=== PATIENT | female | born 1940 | race Caucasian/White ===

== ENCOUNTER 2018-12-26 12:57 | Emergency (ER) | payer MEDICARE ==
[2018-12-26 13:04] VITALS: RESP 18; TEMP 99.1
--- NOTE | 2018-12-26 13:27 | ED ---
Lower Extremity Injury HPI - General Chief Complaint: Extremity Injury, Lower Stated Complaint: fall Time Seen by Provider: 12/26/18 13:06 Source: patient, RN notes reviewed Mode of arrival: ambulatory Limitations: no limitations - History of Present Illness Initial Comments: This an 78-year-old female presents emergency Department chief complaint of left leg injury. Patient states she fell on Sunday because she missed the last step falling onto her leg. Patient complains of worsening pain to her left leg with increased bruising and swelling. Patient states that most the pain is on the medial aspect of her knee region. Denies any paresthesias. Patient has concerns about possible blood clot denies any chest pain or shortness of breath. Denies any hip pain. - Related Data Home Medications Medication Instructions Recorded Confirmed Enalapril [Vasotec] 10 mg PO DAILY 12/26/18 12/26/18 Montelukast [Singulair] 10 mg PO HS 12/26/18 12/26/18 Nature-Thyroid Unknown Dose 0.5 tab PO MOTH 12/26/18 12/26/18 Thyroid,Pork [[place] Thyroid] 30 mg PO DAILY 12/26/18 12/26/18 Allergies Allergy/AdvReac Type Severity Reaction Status Date / Time Penicillins Allergy Dyspnea Verified 12/26/18 13:39 Review of Systems ROS Statement: Those systems with pertinent positive or pertinent negative responses have been documented in the HPI. ROS Other: All systems not noted in ROS Statement are negative. Past Medical History Past Medical History: Asthma, Hypertension, Thyroid Disorder History of Any Multi-Drug Resistant Organisms: None Reported Past Surgical History: No Surgical Hx Reported Past Psychological History: No Psychological Hx Reported Smoking Status: Current every day smoker Past Alcohol Use History: None Reported Past Drug Use History: None Reported General Exam Limitations: no limitations General appearance: alert, in no apparent distress Head exam: Present: atraumatic, normocephalic, normal inspection Respiratory exam: Present: normal lung sounds bilaterally. Absent: respiratory distress, wheezes, rales, rhonchi, stridor Cardiovascular Exam: Present: regular rate, normal rhythm, normal heart sounds. Absent: systolic murmur, diastolic murmur, rubs, gallop, clicks Extremities exam: Present: other (Left leg there is tenderness on the medial aspect of the knee,, neurovascular intact there is no laxity there is mild discomfort with range of motion there is diffuse ecchymosis from the knee to the left foot there is no tenderness of the distal tib-fib or left foot) Course Vital Signs 12/26/18 13:01 Temperature 99.1 F Pulse Rate 83 Respiratory 18 Rate Blood Pressure 149/73 O2 Sat by Pulse 97 Oximetry Medical Decision Making - Medical Decision Making 78-year-old female presented for fall, leg injury. X-ray also obtained negative for acute abnormality. Patient has a knee contusion. Patient will be discharged return parameters were discussed. Disposition Clinical Impression: Contusion of left knee Disposition: HOME SELF-CARE Condition: Stable Instructions (If sedation given, give patient instructions): Knee Pain (ED) Additional Instructions: Please return to the Emergency Department if symptoms worsen or any other concerns. Is patient prescribed a controlled substance at d/c from ED?: No Referrals: Kaitlin Shirley DO [Primary Care Provider] - 1-2 days Time of Disposition: 14:51
--- NOTE | 2018-12-26 13:59 | US ---
EXAMINATION TYPE: US venous doppler duplex LE LT DATE OF EXAM: 12/26/2018 1:19 PM COMPARISON: NONE CLINICAL HISTORY: Pain. Left leg pain following fall 5 days ago SIDE PERFORMED: Left TECHNIQUE: The lower extremity deep venous system is examined utilizing real time linear array sonog arjun with graded compression, doppler sonography and color-flow sonography. VESSELS IMAGED: External Iliac Vein (EIV) Common Femoral Vein Deep Femoral Vein Greater Saphenous Vein * Femoral Vein Popliteal Vein Small Saphenous Vein * Proximal Calf Veins (* superficial vessels) Left Leg: Appears negative for DVT IMPRESSION: 1. No diagnostic evidence of DVT as visualized.
--- NOTE | 2018-12-26 14:40 | XR ---
EXAMINATION TYPE: XR knee complete LT DATE OF EXAM: 12/26/2018 COMPARISON: NONE HISTORY: Pain TECHNIQUE: 3 views FINDINGS: There is no evidence of fracture nor dislocation. Joint spaces are fairly normal. There is soft tissue swelling and subcutaneous edema around the anterior knee. IMPRESSION: Soft tissue swelling. No fracture seen.
[2018-12-26 15:09] VITALS: BP 140/70; PULSE 80
== END 2018-12-26 15:09 | disposition home or self-care (01) ==
LOC: SUPCPDRO 12:57 → EC 12:57
DX: S80.02XA Contusion of left knee, initial encounter (principal); J45.909 Unspecified asthma, uncomplicated; E07.9 Disorder of thyroid, unspecified; I10 Essential (primary) hypertension; F17.200 Nicotine dependence, unspecified, uncomplicated; Z79.899 Other long term (current) drug therapy; Z88.0 Allergy status to penicillin; W10.8XXA Fall (on) (from) other stairs and steps, initial encounter
CPT/HCPCS: 99284